=== PATIENT | male | born 1990 | race Two or more races ===

== ENCOUNTER 2019-05-26 22:28 | Emergency (ER) | payer OTHER ==
[~2019-05-26] VITALS: Ht 175.3 cm; Wt 87.8 kg
[2019-05-26 23:02] VITALS: Ht 175.3 cm; Wt 87.8 kg
[2019-05-26 23:54] VITALS: BP 110/69
== END 2019-05-26 23:54 | disposition home or self-care (01) ==
LOC: ED 22:28
DX: K04.7 Periapical abscess without sinus (principal); K02.9 Dental caries, unspecified; Z88.5 Allergy status to narcotic agent